=== PATIENT | male | born 2000 | race Caucasian/White ===

== ENCOUNTER 2023-05-12 07:26 | Inpatient (IN) | payer OTHER ==
[2023-05-12 07:39] VITALS: BMI 23.8
[2023-05-12 10:19] LABS: HEMATOCRIT 26.4 % (35.4-49); HEMOGLOBIN 8.6 GM/dL (11.7-16.9); MCH 30.2 pg (25.7-33.7); MCHC 32.5 g/dl (32.0-35.9); MEAN CELL VOLUME 92.9 fl (80-96); PLATELET COUNT 211 10^3/uL (134-434); RBC 2.84 M/mm3 (4.00-5.60); RDW 21.4 % (11.9-15.9); WHITE BLOOD COUNT 4.1 K/mm3 (4.0-10.0)
[2023-05-12 10:34] LABS: POTASSIUM 4.3 mmol/L (3.5-5.1)
[2023-05-12 10:36] LABS: CALCIUM 8.5 mg/dL (8.5-10.1)
[2023-05-12 10:37] LABS: ALBUMIN 3.3 g/dl (3.4-5.0); BLOOD UREA NITROGEN 8.4 mg/dL (7-18)
[2023-05-12 10:40] LABS: CREATININE 0.6 mg/dL (0.55-1.3)
[2023-05-12 10:41] LABS: TOT PROT 7.1 g/dl (6.4-8.2)
[2023-05-12 10:42] LABS: BILIRUBIN,TOTAL 1.5 mg/dL (0.2-1)
[2023-05-12 11:03] LABS: ANISOCYTOSIS 2+; MACROCYTOSIS 0
[2023-05-12 13:25] LABS: URINE APPEARANCE CLEAR; URINE BILIRUBIN NEGATIVE (NEGATIVE); URINE COLOR DK YELLOW; URINE GLUCOSE (UA) NEGATIVE (NEGATIVE); URINE KETONE NEGATIVE (NEGATIVE); URINE LEUK ESTERASE NEGATIVE (NEGATIVE); URINE NITRITE NEGATIVE (NEGATIVE); URINE PROTEIN NEGATIVE (NEGATIVE)
[2023-05-12] MEDS ORDERED: valACYclovir HCL 500 MG TABLET (FP) PO PRN (14:41)
[2023-05-13] MEDS: BICTEGRAV/EMTRICIT/TENOFOV (BIKTARVY) 50-200-25 MG TABLET PO SCH (08:22)
[2023-05-13] MEDS: SULFAMETHOXAZOLE/TRIMETHOPRIM 800MG/160MG D.S. TABLET PO SCH (09:28)
[2023-05-13 09:46] LABS: HEMOGLOBIN 8.7 GM/dL (11.7-16.9); MCH 30.4 pg (25.7-33.7); MCHC 33.5 g/dl (32.0-35.9); MEAN CELL VOLUME 90.8 fl (80-96); PLATELET COUNT 182 10^3/uL (134-434); RBC 2.87 M/mm3 (4.00-5.60); RDW 21.7 % (11.9-15.9)
[2023-05-13 10:01] LABS: POTASSIUM 3.8 mmol/L (3.5-5.1)
[2023-05-13 10:51] VITALS: RESP 18
[2023-05-13 10:52] LABS: CALCIUM 8.6 mg/dL (8.5-10.1)
[2023-05-13 10:53] LABS: BLOOD UREA NITROGEN 8.1 mg/dL (7-18)
[2023-05-13 10:56] LABS: CREATININE 0.7 mg/dL (0.55-1.3)
[2023-05-13 10:57] LABS: BILIRUBIN,DIRECT 0.5 mg/dL (0.0-0.2)
[2023-05-13 12:37] LABS: ANISOCYTOSIS 2+; MACROCYTOSIS 0; OVALOCYTE 2+; TEAR DROP CELLS 1+
[2023-05-13] MEDS ORDERED: BISACODYL 5 MG TABLET.DR (FP) PO ONE (16:00)
[2023-05-13] MEDS ORDERED: PEG 3350/NA SULF BICARB CL/KCL 4000 ML SOLN.RECON PO ONE (17:00)
[2023-05-13 22:34] LABS: OPIATES, URI NEGATIVE (NEGATIVE); PHENCYCLIDINE,URINE NEGATIVE (NEGATIVE); URINE BARBITURATES NEGATIVE (NEGATIVE); URINE BENZODIAZEPINES NEGATIVE (NEGATIVE)
[2023-05-13 22:35] LABS: COCAINE, UR NEGATIVE (NEGATIVE); METHADONE, UR NEGATIVE (NEGATIVE)
[2023-05-13 22:40] LABS: URINE AMPHETAMINES NEGATIVE (NEGATIVE)
[2023-05-14] MEDS: SULFAMETHOXAZOLE/TRIMETHOPRIM 800MG/160MG D.S. TABLET PO SCH (09:15)
[2023-05-14] MEDS: BICTEGRAV/EMTRICIT/TENOFOV (BIKTARVY) 50-200-25 MG TABLET PO SCH (09:15)
[2023-05-14 09:31] LABS: HEMATOCRIT 27.8 % (35.4-49); HEMOGLOBIN 9.2 GM/dL (11.7-16.9); MCH 30.9 pg (25.7-33.7); MCHC 33.1 g/dl (32.0-35.9); MEAN CELL VOLUME 93.6 fl (80-96); MEAN PLT VOLUME 6.6 fl (7.5-11.1); PLATELET COUNT 217 10^3/uL (134-434); RBC 2.98 M/mm3 (4.00-5.60); RDW 21.4 % (11.9-15.9); WHITE BLOOD COUNT 2.4 K/mm3 (4.0-10.0)
[2023-05-14 09:56] LABS: POTASSIUM 4.1 mmol/L (3.5-5.1)
[2023-05-14 10:13] LABS: BILIRUBIN,TOTAL 1.8 mg/dL (0.2-1)
[2023-05-14 10:14] LABS: ALBUMIN 3.4 g/dl (3.4-5.0); BLOOD UREA NITROGEN 7.5 mg/dL (7-18); CALCIUM 8.7 mg/dL (8.5-10.1); MAGNESIUM 2.4 mg/dL (1.8-2.4)
[2023-05-14 10:15] LABS: CREATININE 0.8 mg/dL (0.55-1.3)
[2023-05-14 10:17] LABS: TOT PROT 7.1 g/dl (6.4-8.2)
[2023-05-14 15:46] VITALS: BP 118/70; PULSE 88; TEMP 98
[2023-05-15] MEDS ORDERED: AZITHROMYCIN 600 MG TABLET PO SCH (10:00)
== END 2023-05-14 16:29 | disposition home or self-care (01) | DRG 253 ==
LOC: JER 07:26 → JERBED 13:15 → OBSVTOIN 14:42 → J6S 14:53
PROVIDERS: ADMIT Internal Medicine; ATTEND Internal Medicine
DX: K62.5 Hemorrhage of anus and rectum (principal); B20 Human immunodeficiency virus [HIV] disease; B19.10 Unspecified viral hepatitis B without hepatic coma; D70.9 Neutropenia, unspecified; D64.9 Anemia, unspecified
CPT/HCPCS: 0241U-QW; 36415; 71045-TC-FY; 76700-TC; 80048; 80053; 80307; 81003; 82248; 82272; 82607; 82728; 82746; 82785; 83010; 83540; 83550; 83615; 83735; 84100; 84466; 85025; 85027; 85045; 86359; 86360; 86480; 86682; 86850; 86900; 86901; 87086; 99285-25; G0378